=== PATIENT | male | born 1985 | race Caucasian/White ===

== ENCOUNTER 2018-09-27 07:11 | Emergency (ER) | payer OTHER ==
[~2018-09-27] VITALS: Ht 175.3 cm; Wt 87.0 kg
[2018-09-27] MEDS: OXYCODONE HCL/ACETAMINOPHEN 5/325MG TABLET PO ONE (07:58)
[2018-09-27 07:59] LABS: HEMATOCRIT. 25.3 % (42.0-52.0); HEMOGLOBIN. 8.2 g/dL (14.0-18.0); MEAN CORPUSCULAR HEMOGLOBIN 27.3 pg (28.0-32.0); MEAN PLATELET VOLUME 7.1 fl (7.4-10.4); PLATELET 243 x1000/uL (130-400); RED BLOOD CELL COUNT 3.01 mill/uL (4.7-6.1)
[2018-09-27 08:05] LABS: CHLORIDE 109 mEq/L (98-107)
[2018-09-27 08:06] LABS: PROTHROMBIN TIME 10.6 sec (9.6-11.0)
[2018-09-27 08:28] LABS: PLATELET ESTIMATE NORMAL
[2018-09-27 10:27] VITALS: BP 132/69
== END 2018-09-27 10:52 | disposition home or self-care (01) ==
LOC: ER 07:11
DX: M79.661 Pain in right lower leg (principal); I10 Essential (primary) hypertension; J45.909 Unspecified asthma, uncomplicated; Z88.0 Allergy status to penicillin
CPT/HCPCS: 36415; 73590; 80053; 85025; 85610; 93971; 99284; Z7610